=== PATIENT | female | born 1990 | race Caucasian/White ===

== ENCOUNTER 2022-04-25 09:06 | Emergency (ER) | payer OTHER ==
[~2022-04-25] VITALS: Ht 165.1 cm; Wt 48.5 kg
[2022-04-25] MEDS ORDERED: ALREX5 ML OP (09:25)
== END 2022-04-25 18:00 | disposition home or self-care (01) ==
LOC: ER 09:06
DX: R10.9 Unspecified abdominal pain (principal); Z88.0 Allergy status to penicillin; Z88.6 Allergy status to analgesic agent; J45.909 Unspecified asthma, uncomplicated
CPT/HCPCS: 36415; 74177; Q9965; 76830